=== PATIENT | male | born 1960 | race Caucasian/White ===

== ENCOUNTER 2019-05-09 05:50 | Day surgery (SDC) | payer OTHER ==
[~2019-05-09] VITALS: Ht 180.3 cm; Wt 97.5 kg
[~2019-05-09 05:50] MED LIST: ASPIR-LOW81 MG PO
[2019-05-09] MEDS ORDERED: SIMVASTATIN20 MG PO (06:10)
--- NOTE | 2019-05-09 06:20 | NUR ---
arrived per personal wheelchair. does not stand.
--- NOTE | 2019-05-09 08:45 | NUR ---
05/09/19 0845 Chari Bradshaw 0757 PT ARRIVED TO PACU, PT ASLEEP ON LEFT SIDE AND BP DECREASED. PT WOKE TO TACTILE STIMULI THEN BACK TO SLEEP. 0800 PT WOKE AND DENIES PAIN, BP INCREASED AND PT REORIENTED TO PACU. 0801 O2 REMOVED. 0815 PT AWAKE AND HOB INCREASED. PLAN OF CARE DISCUSSED AND MD AT BEDSIDE. 0820 PT SIPPING JUICE PER REQUEST. 0830 PT GETTING DRESSED AND DENIES ANY CONCERNS AT THIS TIME. 0834 PT TRANSFERED HIMSELF TO HIS OWN WHEELCHAIR AND RN WALKED PT TO CAR WITH HIS BROTHER DRIVING. ALL QUESTIONS ANSWERED.
--- NOTE | 2019-05-09 10:55 | OR ---
[facility] [address], [place] [address] Signed DATE OF OPERATION: 05/09/2019 SURGEON: Isauro Daigle MD PREOPERATIVE DIAGNOSIS: Personal history of colonic polyps in 2012. POSTOPERATIVE DIAGNOSES: 1. 4 mm lipoma/polyp at 50 cm. 2. Minimal fields-diverticulosis. 3. Moderate internal and external hemorrhoids. PROCEDURE: Colonoscopy with hot biopsy. ESTIMATED BLOOD LOSS: None. INDICATIONS: Karlo is a 58-year-old gentleman, who is a paraplegic. His brother helps take care of him and he gets around in his wheelchair. He goes to the [facility]. He had a colonic polyp removed through the [place] system and was asked to follow up in 5 years. In the meantime, he says he has no lower GI complaints. He really has no constipation. He said there is no family history of colon cancer or polyps. In the office, I gave him a pamphlet on colonoscopy. We looked at that together along with the risks including, but not limited to gas, bloating, crampy abdominal pain, bleeding, perforation requiring surgery, and missed diagnosis. He also understands the need for IV conscious sedation. Given his very full face, heavy kee, and his paraplegia, we asked that an anesthesia provider help us with increased monitoring sedation with propofol. He had expressed understanding and wished to proceed. PROCEDURE NOTE: Karlo was taken into our endoscopy suite and placed in the left lateral decubitus position. He was given IV sedation per our nurse second crusher. A digital rectal exam was performed. He does have moderate bilateral external hemorrhoids. The adult colonoscope was introduced and advanced all around into the cecum under direct visualization of camera without difficulty. His prep was good. He had just a few areas of liquid stool. Most of that was suctioned out. We could easily see the appendiceal orifice and the ileocecal valve. We took pictures throughout for photodocumentation. The scope was slowly withdrawn. He has just a few diverticula in the right and sigmoid Electronically Signed By: ISAURO DAIGLE MD 05/09/19 1055 PATIENT NAME: WILI FORRESTER OPERATIVE REPORT DATE OF : 58 REPORT #: [id number] PHYSICIAN: ISAURO DAIGLE MD PCP: LIZANDRO PARK REPORT IS CONFIDENTIAL AND NOT TO BE RELEASED WITHOUT AUTHORIZATION [facility] [address], [place] [address] Signed colon. They were moderate in size, but few in number, and scattered about. We also saw what looks like probably a small lipoma at 50 cm. We went ahead and removed it with our hot biopsy forceps. Near the top of the rectum, we saw two scars, and I suspect that is the area of his previous polypectomy sites. The scope had been retroflexed in the rectum. He does have moderate internal hemorrhoid columns. After this, the gas was suctioned out and the colonoscope removed. Karlo tolerated the procedure quite well. RECOMMENDATIONS: I will see Karlo back in my office in 7 to 14 days to review his results. Isauro Daigle MD ALB/MODL /[id number] cc: CECILIO Funez MD Copies: LIZANDRO PARK ANDREW L MD ~ Electronically Signed By: ISAURO DAIGLE MD 05/09/19 1055 PATIENT NAME: WILI FORRESTER OPERATIVE REPORT DATE OF : 58 REPORT #: [id number] PHYSICIAN: ISAURO DAIGLE MD PCP: LIZANDRO PARK REPORT IS CONFIDENTIAL AND NOT TO BE RELEASED WITHOUT AUTHORIZATION
--- NOTE | 2019-05-11 16:05 | PATH ---
[facility] [address] [facility] [place] [place] [address] Signed SPECIMEN(S): A COLON POLYP AT 50 CM SPECIMEN SOURCE: A. COLON POLYP AT 50 CM CLINICAL HISTORY: History of polyps. #1 polyp/lipoma. Post: Polyp x 1, diverticula, external hemorrhoids. MICROSCOPIC DESCRIPTION: Histologic sections of all submitted blocks are examined by light microscopy. These findings, together with the gross examination, support the pathologic diagnosis. FINAL PATHOLOGIC DIAGNOSIS: Colon polyp at 50 cm, polypectomy: - Fragment of colonic mucosa with underlying lipoma. - Negative for dysplasia. DDF:[facility]:C2NR GROSS DESCRIPTION: The specimen is received in a formalin-filled specimen container labeled "DELORIS". A small soft, gibbs biopsy is 0.3 x 0.2 x 0.2 cm and entirely submitted in cassette (A1). GW (under the direct supervision of a pathologist) The Gross Description was prepared using a voice recognition system. The report was reviewed for accuracy; however, sound-alike word errors, addition and/or deletions may occur. If there is any question about this report, please contact Client Services. PERFORMING LABORATORY: The technical component was performed by [facility], [address] [place] [id number] (Drug Safety Data Management Specialist: Estefani Horton MD; CLIA# [id number]). [facility], [address] [place] [id number] (CLIA# [id number]). Diagnostician: Gabo Murillo DO Pathologist Electronically Signed 05/11/2019 PATIENT NAME: WILI FORRESTER PATHOLOGY DATE OF : 58 REPORT #: [id number] PHYSICIAN: ED HANNAH PCP: LIZANDRO PARK REPORT IS CONFIDENTIAL AND NOT TO BE RELEASED WITHOUT AUTHORIZATION [address] [place], [place] [address] Signed Copies: ~ PATIENT NAME: WILI FORRESTER PATHOLOGY DATE OF : 58 REPORT #: [id number] PHYSICIAN: ED PATHOLOGY PCP: LIZANDRO PARK REPORT IS CONFIDENTIAL AND NOT TO BE RELEASED WITHOUT AUTHORIZATION
== END 2019-05-09 08:34 | disposition home or self-care (01) ==
LOC: DS 05:50 → OPS 05:50 → DS 06:45 → OPS 06:45
PROVIDERS: Colon & Rectal Surgery
PROC: 0DBE8ZZ Excision of Large Intestine, Via Natural or Artificial Opening Endoscopic (ICD-10-PCS; principal; 2019-05-09 06:45)
DX: Z12.11 Encounter for screening for malignant neoplasm of colon (principal); D17.5 Benign lipomatous neoplasm of intra-abdominal organs; K57.30 Diverticulosis of large intestine without perforation or abscess without bleeding; K64.8 Other hemorrhoids; K64.4 Residual hemorrhoidal skin tags; I10 Essential (primary) hypertension; E78.00 Pure hypercholesterolemia, unspecified; M81.0 Age-related osteoporosis without current pathological fracture; J43.9 Emphysema, unspecified; Z86.010 Personal history of colon polyps; Z79.82 Long term (current) use of aspirin; Z79.899 Other long term (current) drug therapy; Z98.890 Other specified postprocedural states; Z88.8 Allergy status to other drugs, medicaments and biological substances
CPT/HCPCS: J2704; J7121